=== PATIENT | male | born 1980 | race Caucasian/White ===

== ENCOUNTER 2020-10-15 12:30 | Outpatient (RCR) | payer BC, SELFPAY ==
[2020-08-11 09:36] VITALS: BMI 61.6
[2020-08-11 09:39] VITALS: BMI 61.6
[2020-10-15 12:29] VITALS: BMI 61.9
[2020-10-15 12:32] VITALS: BMI 61.9
== END 2020-10-26 12:00 | disposition home or self-care (01) ==
LOC: ANHDMC 12:30
PROVIDERS: PCP Family Medicine; Visit Provider Family Medicine
DX: E66.01 Morbid (severe) obesity due to excess calories (principal); Z86.718 Personal history of other venous thrombosis and embolism; I87.2 Venous insufficiency (chronic) (peripheral); Z71.3 Dietary counseling and surveillance
CPT/HCPCS: 97802

== ENCOUNTER 2021-02-09 09:32 | Outpatient (RCR) | payer BC, SELFPAY ==
[2021-02-09 09:41] VITALS: BMI 61.9
== END 2021-04-26 15:00 | disposition home or self-care (01) ==
LOC: ANHDMC 09:32
PROVIDERS: PCP Family Medicine; Visit Provider Family Medicine
DX: E66.01 Morbid (severe) obesity due to excess calories (principal); I87.2 Venous insufficiency (chronic) (peripheral); Z86.718 Personal history of other venous thrombosis and embolism; Z71.3 Dietary counseling and surveillance
CPT/HCPCS: 97803

== ENCOUNTER 2022-06-30 09:05 | Outpatient (CLI) | payer BC, SELFPAY ==
--- NOTE | ~2022-06-30 | XR_ITS ---
EXAMINATION: XR lumbar spine 2-3V DATE: 06/30/2022 09:51 INDICATION: Low back pain. TECHNIQUE: 3 views of lumbar spine on 4 radiographs were obtained. COMPARISON: None. FINDINGS: Bone alignment is normal. Vertebral body heights are normal. Intervertebral disc heights ar e normal. There are endplate osteophytes at most levels. There is multilevel mild facet joint osteoar thritis. IMPRESSION: 1. Mild lumbar spondylosis. Reviewed, dictated and finalized at location A. IMPRESSION: 1. Mild lumbar spondylosis.
== END 2022-06-30 09:06 | disposition home or self-care (01) ==
PROVIDERS: PCP Family Medicine; Visit Provider Physician Assistant
DX: M47.816 Spondylosis without myelopathy or radiculopathy, lumbar region (principal)
CPT/HCPCS: 72100

== ENCOUNTER 2024-04-01 16:23 | Outpatient (CLI) | payer BC, SELFPAY ==
--- NOTE | ~2024-04-01 | US_ITS ---
US renal BI Ordering provider: Darling Hartman PA-C History: . R79.89 - Other specified abnormal findings of blood chemi... . Comparison: None. Technique: Ultrasound bilateral kidneys. Findings: RIGHT KIDNEY: Measures 11.5x 4.9x 5.2 cm in length which is normal in size. No renal cysts. No renal mass or visualized echogenic stones. Otherwise, normal echotexture and contour. No hydronephrosis. No rmal renal cortical thickness. LEFT KIDNEY: Measures 12.2x 5x 6.1 cm in length which is normal in size. No renal cysts. No renal mas s or visualized echogenic stones. Otherwise, normal echotexture and contour. No hydronephrosis. Leesa l renal cortical thickness. BLADDER: Normal. The wall measures 0.3 cm. Ureteral jets were seen bilaterally. IMPRESSION: No definite abnormality seen. Reviewed, dictated and finalized at location A. RWRITING SERVICE REPRESENTATIVE
== END 2024-04-01 16:24 | disposition home or self-care (01) ==
PROVIDERS: PCP Student in an Organized Health Care Education/Training Program; Visit Provider Student in an Organized Health Care Education/Training Program
DX: R79.89 Other specified abnormal findings of blood chemistry (principal)
CPT/HCPCS: 76775

== ENCOUNTER 2025-01-24 01:18 | Day surgery (SDC) | payer BC, SELFPAY ==
[2025-01-21 10:06] VITALS: BMI 57.2
--- NOTE | 2025-01-21 10:58 | PC.NURSE ---
Spoke with Patient regarding medication xarelto. Patient verbalizes understanding that the last dose is to be taken on 01/20/25- pt took dose today, he did not know to hold, last dose will be 01/21/25 and the Endoscopist will instruct them when to restart after the procedure.
--- NOTE | 2025-01-23 15:01 | ECG_ITS ---
Test Date: 2025-01-24 09:03:49 Measurements Intervals [place] Rate: 57 P: 27 CO: 141 QRS: 18 QRSD: 112 T: 21 QT: 403 QTc: 395 Interpretive Statements SINUS BRADYCARDIA INCOMPLETE RIGHT BUNDLE BRANCH BLOCK Electronically Signed On 01-24-2025 10:05:46 LABORATORY CLERK by Uziel Montana D.O
--- OUTSIDE RECORDS SUMMARY | 2025-01-24 01:21 | XMS_ITS | Clinical Summary ---
Author Organization [facility] Address [address] [place] [id number] Care Team Providers Care Forestry Patrolman Name Role Phone Unavailable Primary Care Provider Unavailabl e Social History Tobacco Use Types Packs/Day Years Used Date Smoking Tobacco: Never Assessed Sex and Gender Information Value Date Recorded Sex Assigned at Not on file Legal Sex Male 8:07 PM CDT Gender Identity Not on file Sexual Orientation Not on file Plan of Treatment Health Maintenance Due Date Last Done Comments Colorectal Cancer Screening Colonoscopy (10 Years) 1979 Annual Physical 1982 Hepatitis C 1997 DTaP, Tdap and Td Vaccines ( 1 - Tdap) 1998 Hepatitis B Vaccines (1 of 3 - 19+ 3-dose series) 1998 HPV Vaccines (1 - 3-dose SCD M series) 2006 COVID-19 Vaccine (2024-2 6 season) 2024 Influenza Adult (#1) 2024 Hepatitis A Vaccines Aged Out No long er eligible based on patient's age to complete this topic Meningococcal B Vaccine Aged Out No l onger eligible based on patient's age to complete this topic Meningococcal Vaccine Aged Out No murphy patty eligible based on patient's age to complete this topic Pneumococcal Vaccine: Pediat rics (0 to 5 Years) and At-Risk Patients (6 to 49 Years) Aged Out No longer eligible b ased on patient's age to complete this topic RSV Immunizations Under 20 Months Aged Out No longer eligible based on patient's age to complete this topic
--- OUTSIDE RECORDS SUMMARY | 2025-01-24 01:21 | XMS_ITS | Clinical Summary ---
Author Organization [facility] Address [address] [place] [address] Care Team Providers Care Tire Changer Name Role Phone Freda Dodge MD Primary Care Provider Cassie Chavez RN Unavailable Source Comments [facility],non-owned Affiliates and Associated Physician Practices is amultiple site organization consisting of ambulatory clinics and hospital sitesin [place], [place], [place] and [place]. This disclosure is being madepursuant to the Care Everywhere program and may not contain all information available regarding this patient. Last updated 17.[facility] Allergies No known active allergies Medications * Be aware that medications may not be up to date on this document. Alwaysverify current medications with the patient. rivaroxaban (XARELTO STARTER PACK) 15 & 20 MG Take 1 Package by mouth as directed 1 Package 0 07/26/2015 Active metFORMIN (GLUCOPHAGE) 1000 MG tablet Take 1,000 mg by mouth 2 times daily with morning and evening meal Filled @@ [facility] on 07/08/15 Active chlorthalidone (HYGROTON) 25 MG tablet Take 25 mg by mouth once daily Filled @@ [facility] on 06/09/15 Active terbinafine (LAMISIL) 250 MG tablet Take 250 mg by mouth once daily Filled @@ [facility] on 07/08/15 Active carvedilol (COREG) 25 MG tablet Take 1 Tab by mouth 2 times daily with morning and evening meal Filled @@ [facility] on 07/20/15 0 07/26/2015 Active Active Problems Problem Noted Date Diagnosed Date SABINA (obstructive sleep apnea) 07/23/2015 Assessment & Plan (07/23/2015 1:27 AM CDT): Adherence to CPAP at home. Brought his CPAP. -Continue home CPAP HTN (hypertension) 07/23/2015 Assessment & Plan (07/26/2015 11:24 AM CDT): Maintains on Coreg 25mg in the AM and 50mg in the PM and chlorthiadone. Claims adherence to medcation. -Continue home medication Assessment & Plan (07/23/2015 1:22 AM CDT): Maintains on Coreg 25mg in the AM and 50mg in the PM and chlorthiadone. Claims adherence to medcation. -Continue home medication Borderline diabetes 07/23/2015 Assessment & Plan (07/26/2015 3:29 PM CDT): Maintained on Metformin 1000mg once a day at home. POC BG 95 on admission. A1C is 6.3. - DC on metformin. Ok at current dosing given CrCl and new guidelines. Discussed with pharmacy Assessment & Plan (07/23/2015 1:29 AM CDT): Maintained on Metformin 1000mg once a day at home. POC BG 95 on admission. Would expect BS elevation given recent steroid use. -QID accuchecks -Low dose SSI -A1C in the AM Elevated serum creatinine 07/23/2015 Assessment & Plan (07/26/2015 11:22 AM CDT): CrCl is 124. - this is normal Assessment & Plan (07/23/2015 1:21 AM CDT): Unclear whether this is NEGRO or CKD 2/2 HTN. No prior history of CKD per Mr. Thomas. -Trend Cr Gout 07/23/2015 Assessment & Plan (07/26/2015 11:23 AM CDT): Last flair was a year ago. Has been taking probenecid. Had an attack this AM, held probenicid x2 days on admission. -Continue home probenecid - Colchicine for 5 days. Assessment & Plan (07/23/2015 1:32 AM CDT): Last flair was a year ago. Has been taking probenecid. -Continue home probenecid Pulmonary embolism 07/22/2015 Assessment & Plan (07/26/2015 3:29 PM CDT): Presented to OSH where it was suspected he had a PE without radiological evidence due to weight limitation on CT scan machine. Well's score 3: moderate risk for PE. Bedside echo was equivocal on initial assessment. Underwent CT PE and was found to have bilateral PE, worse on the R. Underwent catheter guided tPA with interventional radiology, which was well tolerated. He was transferred to the ICU for post-procedural care. After being determined to be non-critical, he was sent to the general medical floor with telemetry for further management. -Heparin gtt DCed after xarelto - Xarelto as an outpt. $55 copay for his insurance. Patient is ok with it - Xarelto teaching per pharmacy. - Will need followup with PCP soon. Assessment & Plan (07/23/2015 1:28 AM CDT): Suspected PE without radiological evidence due to weight limitation on CT scan machine. History is suspicious for PE with recent car ride for 4 total hours the day prior to start of symptoms. BERG but no SOB at rest. Breathing and saturating well on room air. Well's score 3: moderate risk for PE. Bedside echo was equivocal. -BL LE dopper -Cardiac echo -Therapeutic Lovenox: 150mg Q12H; consider changing to heparin gtt if renal function fails to improve Immunizations Immunization Administration Dates Next Due COVDonate Your Desktop 12+YR 30MCG/0.3mL 01/25/2023 DTP, HISTORIC VACCINE 09/08/1984, 981,1979,1979,1979,1979 INFLUENZA VACCINE, CELL CULT URE, QUADR. (FLUCELVAX QUADRIVALENT; 6MO+) (CCIIV4) 02/27/2019 INFLUENZA VACCINE, CELL CULT URE, QUADR. (FLUCELVAX QUADRIVALENT; 6MO+), 0.5 ML (CCIIV4) 02/04/2018 INFLUENZA VACCINE, QUADR. (F LUZONE; FLULAVAL; FLUARIX; AFLURIA QUADRIVALENT; 6MO+), 0.5 ML (IIV4) 01/25/2023,12/24/2021,01/07/2021 INFLUENZA VACCINE, TRIV. (FL UZONE; FLULAVAL; FLUARIX; AFLURIA TRIVALENT; 6MO+), 0.5 ML (IIV3) 12/22/2023 MMR VACCINE 08/03/1989,08/23/1980 POLIO OPV 09/08/1984, 1,1979,1979,1979 TD (AGE 7-ADULT) 10/27/1994 TDAP, HISTORIC VACCINE 11/08/2012 iNFLUENZA VACCINE, RECOM-LEI, QUADR. (FLUBLOCK QUADRIVALENT; 18Y+) (RIV4) 01/17/2020 Family History Medical History Relation Name Comments Stroke Maternal Grandfather Heart Failure Paternal Grandfather Relation Name Status Comments Maternal Grandfather Paternal Grandfather Social History Tobacco Use Types Packs/Day Years Used Date Smoking Tobacco: Never Alcohol Use Standard Drinks/Week Comments No 0 (1 standard drink = 0.6 oz pur e alcohol) Sex and Gender Information Value Date Recorded Sex Assigned at Not on file Legal Sex Male 11:15 AM CDT Gender Identity Not on file Sexual Orientation Not on file Last Filed Vital Signs Vital Sign Reading Time Taken Comments Blood Pressure 109/67 07/26/2015 5:48 PM CDT Pulse 83 07/26/2015 5:48 PM CDT Temperature 36.6 C (97.8 F) 07/26/2015 5:48 PM CDT Respiratory Rate 18 07/26/2015 5:48 PM CDT Oxygen Saturation 99% 07/26/2015 5:48 PM CDT Inhaled Oxygen Concentration 21% 08/2015 11:44 PM CDT Weight 199.5 kg (439 lb 13.1 oz) 07/24/2015 3:45 AM CDT Height 188 cm (6' 2) 07/24/2015 3:45 AM CDT Body Mass Index 56.47 07/24/2015 3:45 AM CDT Plan of Treatment Health Maintenance Due Date Last Done Comments COLOGUARD (AGES 45-75) - COLON CA SCREENING 1979 COLON MONITORING 1979 COLONOSCOPY - COLON CA SCREENING 1979 CT COLONOGRAPHY - COLON CA SCREENING 1979 Colorectal Cancer Screening 1979 FIT - COLON CA SCREENING 1979 FLEX SIG - COLON CA SCREENING 1979 LIPID TESTING 1979 HIV SCREENING 1994 HEPATITIS C SCREENING 02/17/1997 HEPATITIS B VACCINE (1 of 3 - 19+ 3-dose series) 1998 HPV VACCINE (1 - 3-dose SCDM series) 2006 DTAP/TDAP/TD VACCINES (8 - Td or Tdap) 11/08/2022 11/08/2012, 10/27/1994, 09/08/1984, Additional history exists DEPRESSION SCREENING 03/20/2024 COVID-19 VACCINE ( season) 2024 01/25/2023, 01/22/2021, 06/11/2020, Additional history exists INFLUENZA VACCINE (#1) 2024 , 01/25/2023, 12/24/2021, Additional history exists ZOSTER VACCINE (1 of 2) 2029 HIB VACCINE Aged Out No longer eligi ble based on patient's age to complete this topic MENINGOCOCCAL (Group B) VACCINE SHARED DECISION-MAKING Aged Out No longer eligible based on patient's age to complete this topic MENINGOCOCCAL GROUPS A/C/Y/W VACCINE Aged Out No longer eligible based on patient's age to complete this topic PNEUMOCOCCAL VACCINE Aged Out No long er eligible based on patient's age to complete this topic Insurance [employer] Advance Directives * Full Code (Latest Code Status on File) Date Activated Date Inactivated Comments 07/22/2015 11:29 PM 07/26/2015 9:04 PM Care Teams Tire Changer Relationship Specialty Start Date End Date Freda Dodge MD [address] [place] [address] PCP - General Family Medicine 07/22/15 Cassie Chase, RN Quality Assurance Supervisor 07/23/15
--- OUTSIDE RECORDS SUMMARY | 2025-01-24 01:21 | XMS_ITS | Clinical Summary ---
Author Organization [address] Address [address] [place] [id number] Care Team Providers Care Smutter Name Role Phone Freda Dodge MD Primary Care Provider Allergies No known active allergies Medications allopurinoL (ZYLOPRIM) 300 mg tablet Take 1 tablet (300 mg total) by mouth daily 3 Active carvediloL (COREG) 25 mg tablet Take 1 tablet (25 mg total) by mouth every 12 (twelve) hours Active chlorthalidone (HYGROTON) 25 mg tablet Take 1 tablet (25 mg total) by mouth daily Active ezetimibe (ZETIA) 10 mg tablet Take 1 tablet (10 mg total) by mouth daily 3 Active metFORMIN (GLUCOPHAGE) 1,000 mg tablet Take 1 tablet (1,000 mg total) by mouth Active probenecid-colc hicine 500-0.5 mg per tablet Take 1 tablet by mouth daily 3 Active RIVAROXABAN 15 MG (42)-20 MG (9) TABLETS IN A STARTER PACK Take 1 Package by mouth as directed 6 Active Xarelto 20 mg tablet TAKE 1 TABLET BY MOUTH EVERY EVENING WITH EVENING MEAL 3 Active terbinafine (LamiSIL) 250 mg tablet Take 1 tablet (250 mg total) by mouth daily Active losartan (COZAAR) 25 mg tablet Take 1 tablet (25 mg total) by mouth daily 5 Active Zepbound 2.5 mg/0.5 mL pen injector 5 Active fexofenadine (ARLETTE) 180 mg tablet Take 1 tablet (180 mg total) by mouth daily Active fluticasone propionate (FLONASE) 50 mcg/actuation nasal spray Administer 2 sprays into each nostril daily 1 each Active amoxicillin-cla vulanate (AUGMENTIN) 875-125 mg per tablet Take 1 tablet by mouth 2 (two) times a day for 10 days 20 tablet 01/16/20 25 Active Problems Problem Noted Date Diagnosed Date DVT (deep venous thrombosis) 01/05/2025 Extreme obesity 01/05/2025 Hypovitaminosis D 01/05/2025 Non compliance w medication regimen 01/05/2025 Overeating 01/05/2025 Seasonal allergies 01/05/2025 Benign reactive hypertension 01/05/2025 Borderline diabetes 07/23/2015 Overview (11/25/2022): Last Assessment & Plan: Maintained on Metformin 1000mg once a day at home. POC BG 95 on admission. A1C is 6.3. - DC on metformin. Ok at current dosing given CrCl and new guidelines. Discussed with pharmacy Elevated serum creatinine 07/23/2015 Overview (11/25/2022): Last Assessment & Plan: CrCl is 124. - this is normal Gout 07/23/2015 Overview (11/25/2022): Last Assessment & Plan: Last flair was a year ago. Has been taking probenecid. Had an attack this AM, held probenicid x2 days on admission. -Continue home probenecid - Colchicine for 5 days. HTN (hypertension) 07/23/2015 Overview (11/25/2022): Last Assessment & Plan: Maintains on Coreg 25mg in the AM and 50mg in the PM and chlorthiadone. Claims adherence to medcation. -Continue home medication SABINA (obstructive sleep apnea) 07/23/2015 Overview (11/25/2022): Last Assessment & Plan: Adherence to CPAP at home. Brought his CPAP. -Continue home CPAP Pulmonary embolism 07/22/2015 Overview (11/25/2022): Last Assessment & Plan: Presented to OSH where it was suspected [...] - Will need followup with PCP soon. Encounters Date Type Department Care Team Description 01/05/2025 3:30 PM CDT Office Visit [facility] at [address] [phone] Franco Camejo NP Acute pansinusitis, recurrence not specified (Primary Dx); Elevated blood pressure reading in office with diagnosis of hypertension from Last 3 Months Immunizations Immunization Administration Dates Next Due DTP 09/08/1984, 1,1979,09/04,1979,1979 IPV 09/08/1984, 1,1979,07/09,1979 Influenza, Quadrivalent, Claire l Culture-based MDCK, Antibiotic Free, Intramuscular 02/04/2018 Influenza, Quadrivalent, Claire l Culture-based MDCK, Preservative Free, Antibiotic Free, Intramuscular 02/27/2019 Influenza, Quadrivalent, Rec ombinant, Egg Free, Preservative Free, Intramuscular 01/17/2020 Influenza, Quadrivalent, Spl it, Preservative Free, Intramuscular 01/25/2023,12/24/2021,01/07/2021 Influenza, Trivalent, IM (MDV) 12/20/2010 Influenza, Trivalent, Preser vative Free, Intramuscular 12/22/2023 MMR 08/03/1989,08/23/1980 OPV 09/08/1984, 1,1979,07/09,1979 Td, adsorbed 10/27/1994 Tdap 11/08/2012 Medical History Medical History Date Comments Sleep apnea 2012 Hypertension 2014 Family History Medical History Relation Name Comments Arthritis Maternal Grandmother [place] Clotting disorder Paternal Grandfather Gabe Relation Name Status Comments Maternal Grandmother [place] Paternal Grandfather Gabe Social History Tobacco Use Types Packs/Day Years Used Date Smoking Tobacco: Never Smokeless Tobacco: Never Tobacco Cessation:Counseling Given: Not Answered Sex and Gender Information Value Date Recorded Sex Assigned at Not on file Legal Sex Male 7:40 PM FLAT IRONER Gender Identity Not on file Sexual Orientation Not on file Last Filed Vital Signs Vital Sign Reading Time Taken Comments Blood Pressure 149/79 01/05/2025 3:28 PM CDT Pulse 73 01/05/2025 3:26 PM CDT Temperature 36.4 C (97.6 F) 01/05/2025 3:26 PM CDT Respiratory Rate 21 01/05/2025 3:26 PM CDT Oxygen Saturation 97% 01/05/2025 3:26 PM CDT Inhaled Oxygen Concentration - - Weight 205 kg (452 lb) 01/05/2025 3:26 PM CDT Height 188 cm (6' 2) 07/25/2024 5:56 PM CDT Body Mass Index 58.03 07/25/2024 5:56 PM CDT Plan of Treatment Health Maintenance Due Date Last Done Comments Colon Cancer Screening-Colonoscopy 1979 Depression Screening 1979 Hepatitis C Screening 1979 Hepatitis B Screening 1997 Regular Well Visit/Exam 18-64 1997 HPV Vaccines (1 - 3-dose SCDM series) 2006 DTaP/Tdap/Td Vaccine (7 - Td or Tdap) 11/08/2022 11/08/2012, 10/27/1994, 09/08/1984, Additional history exists Covid-19 Vaccine ( season) 2024 12/05/2021, 01/22/2021, 06/11/2020, Additional history exists Influenza Vaccine (#1) 2024 , 01/25/2023, 12/24/2021, Additional history exists Pneumococcal vaccine <65 Aged Out No longer eligible based on patient's age to complete this topic [place] Care Teams Smutter Relationship Specialty Start Date End Date Freda Dodge MD [address] [facility] [address] [place] [id number] PCP - General Family Medicine 11/25/22
[2025-01-24 08:51] VITALS: BP 139/90; PULSE 65; RESP 16; TEMP 36.2; O2SAT 100; BMI 56.3
[2025-01-24] MEDS: LACTATED RINGERS 1,000 ML 150 ML IV CONT (09:20)
--- NOTE | 2025-01-24 09:21 | P.PNAN_ITS ---
Anes - Initial Pre Proc Eval Procedure: Operation Date: 01/24/25 10:00 Proposed Procedures p Screening Colonoscopy - Alfonso Jaquez MD Date/Time: 01/24/25 09:21 Surgeon: Alfonso Jaquez MD Pre Op Diagnosis: Encounter for screening for malignant neoplasm of Patient Data Age: 44 Gender: M Height: 1.88 m Weight: 199.1 kg Last Vital Signs Temp 36.2 C L 01/24/25 08:51 Pulse 65 01/24/25 08:51 Resp 16 01/24/25 08:51 BP 139/90 01/24/25 08:51 Pulse Ox 100 01/24/25 08:51 O2 Del Method Room Air 01/24/25 08:51 Allergies Allergy/AdvReac Type Severity Reaction Status Date / Time metformin AdvReac Intermediate Diarrhea Verified 01/24/25 08:49 Home Medications ?Medication ?Instructions ?Recorded ?Confirmed ?Type fexofenadine 60 mg tablet ([place] 60 mg PO Q24H 05/0301/24/25 History Allergy) allopurinol 300 mg tablet See Rx Instructions .Route 0 10/14/24 01/24/25 Rx .COMPLEX #90 tabs rivaroxaban 20 mg tablet (Xarelto) See Rx Instructions .Route 10/14/24 01/24/25 Rx .COMPLEX #90 tabs ezetimibe 10 mg tablet See Rx Instructions .Route 0 10/29/24 01/24/25 Rx .COMPLEX #90 tabs carvedilol 25 mg tablet See Rx Instructions .Route 0 11/12/24 01/24/25 Rx .COMPLEX #180 tabs losartan 25 mg tablet 25 mg PO DAILY #90 tabs 11/1901/24/25 Rx probenecid 500 mg-colchicine 0.5 1 tablet PO DAILY #90 tabs 12/13/24 01/24/25 Rx mg tablet Patient hx anesthesia problems: none Family hx anesthesia problems: none Results Review: All pre-operative results and documents have been reviewed as part of the pre- operative evaluation. [facility], [facility] Past Medical History Medical History Hx of pulmonary artery thrombosis Influenza vaccination administered at current visit Pulmonary emboli Extreme obesity Non compliance w medication regimen Borderline diabetes Benign reactive hypertension DVT (deep venous thrombosis) Gout Family History Family History Mother Hypertension Family history of elevated blood lipids Family history of diabetes mellitus in first degree relative Grandparent Family history of rheumatoid arthritis Social History Social History Social History: Smoking status: Never smoker Second hand tobacco smoke exposure: No Alcohol intake: current Alcohol use details: Occasionally Substance use: never Substance use type: does not use Do You Feel Safe in your Home?: Yes Lack of Transportation: No Lack of Food: Never True Current Housing: I Have Housing Concerned About Future Housing: No Difficulty Paying Gas/Electric Bills: No Difficulty Paying for Meds: No Currently Unemployed: No Education: Decline to Answer Difficulty w/ Childcare or Family Care: No Living arrangements: with family Occupation/Education: occupation Gender identity (if verbalized by the patient): Male Sexual Orientation (if Verbalized by the Patient): Straight or Heterosexual Spiritual care concerns: No Anes - Eval Final PreProcedure Day of Procedure 01/24/25 09:21 Patient weight: super morbidly obese Heart: regular rate and rhythm Lungs: decreased breath sounds Airway: Mallampati scale class II Neurological: alert and oriented Last oral intake: >/= 8 hours ASA classification: III Emergent: no Anesthetic plan: proceed Anesthesia type and monitoring: general GIVS and standard monitoring Results Review: All pre-operative results and documents have been reviewed as part of the pre- operative evaluation. Informed Consent: The patient's anesthetic plan and its attendant risks and benefits were discussed with the patient/family/POA. Questions were solicited and answers provided to the satisfaction of the patient/family/POA.
--- NOTE | 2025-01-24 10:27 | S_PTH ---
PATIENT: Jesse Thomas LOC: [facility] #:[id number] AGE/SX: 44/M ROOM: RE01/24/[address]: Alfonso Jaquez MD : 1980 BED: DIS: 01/24/2025 SPEC #: [id number] RECD: 01/24/25 11:39 STATUS: MARTIN REQ #: [id number] ABIGAIL: 01/24/25 10:[address]: Alfonso Jaquez DEPT: [facility] Surgical RECD BY: Sola Ceballos ENTERED: 01/24/25 11:40 SP TYPE: Surgical OTHR DR: Osei Larson MD Tissues: A - Colon Polypectomy B - Colon Polypectomy C - Colon Polypectomy D - Colon Polypectomy Procedures: Hematoxylin and Eosin Stain Gross and Microscopic Level 4
--- NOTE | 2025-01-24 10:30 | PM.IMHP ---
H&P: HPI History of Present Illness Date/Time: 01/24/25 10:30 Chief Complaint: Screening colonoscopy Narrative: This is the patient's first colonoscopy. There are no GI symptoms and there is no family history of colorectal cancer. Review of Systems Review of Systems: All systems reviewed & are unremarkable except as noted in HPI and below PMFSH Past Medical History Medical History Hx of pulmonary artery thrombosis Influenza vaccination administered at current visit Pulmonary emboli Extreme obesity Non compliance w medication regimen Borderline diabetes Benign reactive hypertension DVT (deep venous thrombosis) Gout Family History Family History Mother Hypertension Family history of elevated blood lipids Family history of diabetes mellitus in first degree relative Grandparent Family history of rheumatoid arthritis Social History Social History Social History: Smoking status: Never smoker Second hand tobacco smoke exposure: No Alcohol intake: current Alcohol use details: Occasionally Substance use: never Substance use type: does not use Do You Feel Safe in your Home?: Yes Lack of Transportation: No Lack of Food: Never True Current Housing: I Have Housing Concerned About Future Housing: No Difficulty Paying Gas/Electric Bills: No Difficulty Paying for Meds: No Currently Unemployed: No Education: Decline to Answer Difficulty w/ Childcare or Family Care: No Living arrangements: with family Occupation/Education: occupation Gender identity (if verbalized by the patient): Male Sexual Orientation (if Verbalized by the Patient): Straight or Heterosexual Spiritual care concerns: No Meds Home Medications and Allergies Home Medications ?Medication ?Instructions ?Recorded ?Confirmed ?Type fexofenadine 60 mg tablet ([place] 60 mg PO Q24H 05/03/19 01/24/25 History Allergy) allopurinol 300 mg tablet See Rx Instructions .Route 10/14/24 01/24/25 Rx .COMPLEX #90 tabs rivaroxaban 20 mg tablet (Xarelto) See Rx Instructions .Route 10/14/24 01/24/25 Rx .COMPLEX #90 tabs ezetimibe 10 mg tablet See Rx Instructions .Route 10/29/24 01/24/25 Rx .COMPLEX #90 tabs carvedilol 25 mg tablet See Rx Instructions .Route 11/12/24 01/24/25 Rx .COMPLEX #180 tabs losartan 25 mg tablet 25 mg PO DAILY #90 tabs 12/13/24 01/24/25 Rx probenecid 500 mg-colchicine 0.5 1 tablet PO DAILY #90 tabs 12/13/24 01/24/25 Rx mg tablet Allergies Allergy/AdvReac Type Severity Reaction Status Date / Time metformin AdvReac Intermediate Diarrhea Verified 01/24/25 08:49 Vital Signs Vital Signs - 24 hr 01/24/25 08:51 Temperature 97.2 F L Pulse Rate 65 Respiratory Rate 16 Blood Pressure 139/90 Pulse Oximetry 100 Oxygen Delivery Room Air Exam Const: General: cooperative and healthy appearing Resp: Effort & Inspection: normal respiratory effort and able to speak in complete sentences Auscultation: clear to auscultation bilaterally Cardio: Rate: regular rate Rhythm: regular rhythm GI: Inspection: normal to inspection GI Palp: No No hepatosplenomegaly present Auscultation: normal bowel sounds Rectal Exam: deferred Skin: General skin exam: normal color Psych: Appearance: grossly normal Mental Status: mental status grossly normal Assessment and Plan Assessment and plan (1) Encounter for screening colonoscopy: Code(s): Z12.11 - Encounter for screening for malignant neoplasm of colon Status: Acute Assessment and Plan: The patient is deemed a good candidate for the procedure. Consent signed. Will proceed.
[2025-01-24 10:32] VITALS: BP 114/64; PULSE 76; RESP 18; O2SAT 100
[2025-01-24 10:42] VITALS: BP 113/71; PULSE 63; RESP 22; O2SAT 100
[2025-01-24 10:52] VITALS: BP 128/78; PULSE 60; RESP 20; O2SAT 100
== END 2025-01-24 11:04 | disposition home or self-care (01) ==
PROVIDERS: PCP Family Medicine; Referring Provider Physician Assistant; Visit Provider Internal Medicine Gastroenterology
PROC: 0DJD8ZZ Inspection of Lower Intestinal Tract, Via Natural or Artificial Opening Endoscopic (ICD-10-PCS; CPT 45378; principal; 2025-01-24 10:00)
DX: Z12.11 Encounter for screening for malignant neoplasm of colon (principal); D12.3 Benign neoplasm of transverse colon; D12.4 Benign neoplasm of descending colon; D12.5 Benign neoplasm of sigmoid colon; D12.8 Benign neoplasm of rectum; I10 Essential (primary) hypertension; E11.9 Type 2 diabetes mellitus without complications; E66.01 Morbid (severe) obesity due to excess calories; Z68.43 Body mass index [BMI] 50.0-59.9, adult; Z79.01 Long term (current) use of anticoagulants; Z86.711 Personal history of pulmonary embolism; Z86.718 Personal history of other venous thrombosis and embolism
CPT/HCPCS: 45385; 88305; 93005; J2003; J2704; J7120